=== PATIENT | male | born 2000 | race Caucasian/White ===

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

== ENCOUNTER 2022-06-19 20:17 | Emergency (ER) | payer SELFPAY ==
[2022-06-19] MEDS ORDERED: SEPTDS PO (22:03)
[2022-06-19] MEDS ORDERED: NYSTATIN CREAM15 GM T (22:03)
== END 2022-06-19 22:16 | disposition home or self-care (01) ==
LOC: ED 20:17
DX: L30.4 Erythema intertrigo (principal)

== ENCOUNTER 2022-10-21 15:39 | Emergency (ER) | payer OTHER ==
[~2022-10-21] VITALS: Ht 180.3 cm
[~2022-10-21 15:39] MED LIST changes: +NYSTATIN CREAM15 GM T; +SEPTDS PO
[2022-10-21] MEDS ORDERED: NYSTATIN OINTME30 GM T (15:55)
== END 2022-10-21 15:59 | disposition home or self-care (01) ==
LOC: ED 15:39
DX: B37.2 Candidiasis of skin and nail (principal)

== ENCOUNTER 2023-08-11 11:17 | Emergency (ER) | payer SELFPAY ==
[~2023-08-11 11:17] MED LIST changes: +NYSTATIN OINTME30 GM T
== END 2023-08-11 12:23 | disposition home or self-care (01) ==
LOC: ED 11:17
DX: J06.9 Acute upper respiratory infection, unspecified (principal); Z20.822 Contact with and (suspected) exposure to COVID-19

== ENCOUNTER 2023-09-13 20:52 | Emergency (ER) | payer SELFPAY ==
[~2023-09-13] VITALS: Ht 180.3 cm; Wt 72.6 kg
== END 2023-09-13 23:30 | disposition home or self-care (01) ==
LOC: ED 20:52
DX: M79.671 Pain in right foot (principal); R22.9 Localized swelling, mass and lump, unspecified; Z87.891 Personal history of nicotine dependence

== ENCOUNTER 2023-09-18 19:22 | Emergency (ER) | payer SELFPAY | END 2023-09-18 20:14 | disposition home or self-care (01) | LOC: ED 19:22 | DX: M85.671 Other cyst of bone, right ankle and foot (principal) ==

== ENCOUNTER 2024-06-01 15:40 | Emergency (ER) | payer SELFPAY ==
[~2024-06-01] VITALS: Ht 180.3 cm; Wt 77.1 kg
[2024-06-01] MEDS ORDERED: Ondansetron4 MG PO (16:07)
[2024-06-01] MEDS ORDERED: Ondansetron Hydrochloride 4 MG TAB SL ONE (16:10)
== END 2024-06-01 16:18 | disposition home or self-care (01) ==
LOC: ED 15:40
DX: R11.0 Nausea (principal)

== ENCOUNTER 2024-09-22 18:07 | Emergency (ER) | payer OTHER ==
[~2024-09-22] VITALS: Ht 172.7 cm; Wt 81.6 kg
[~2024-09-22 18:07] MED LIST changes: +Ondansetron4 MG PO
[2024-09-22] MEDS ORDERED: AMOX-CLAV 875-1 EACH PO (18:15)
[2024-09-22] MEDS ORDERED: Amoxicillin/Clavulanate Pota 875 MG TAB PO ONE (18:20)
== END 2024-09-22 18:22 | disposition home or self-care (01) ==
LOC: ED 18:07
DX: J02.0 Streptococcal pharyngitis (principal); R59.0 Localized enlarged lymph nodes

== ENCOUNTER 2025-06-26 20:17 | Emergency (ER) | payer OTHER ==
[~2025-06-26] VITALS: Ht 180.3 cm; Wt 81.6 kg
[~2025-06-26 20:17] MED LIST changes: +AMOX-CLAV 875-1 EACH PO
[2025-06-26] MEDS ORDERED: Ondansetron4 MG PO (21:35)
== END 2025-06-26 21:50 | disposition home or self-care (01) ==
LOC: ED 20:17
DX: R11.0 Nausea (principal); Z91.048 Other nonmedicinal substance allergy status